=== PATIENT | male | born 1970 | race African-American/Black ===

== ENCOUNTER 2018-01-21 14:01 | Emergency (ER) | payer OTHER ==
[~2018-01-21 14:01] MED LIST: PENI500T PO; TRAM50 PO; Z.0.NO CURRENT MEDS
[2018-01-21 14:09] VITALS: BP 121/71; PULSE 63; RESP 16; TEMP 98.5; O2SAT 98
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
[2018-01-21] MEDS ORDERED: CYCL10TA PO (15:45)
[2018-01-21] MEDS ORDERED: NAPR500 PO (15:45)
== END 2018-01-21 16:16 | disposition home or self-care (01) ==
LOC: NEPK 14:01
DX: S39.012A Strain of muscle, fascia and tendon of lower back, initial encounter (principal); V43.52XA Car driver injured in collision with other type car in traffic accident, initial encounter; Y92.410 Unspecified street and highway as the place of occurrence of the external cause; F12.90 Cannabis use, unspecified, uncomplicated
CPT/HCPCS: 72100; 99283

== ENCOUNTER 2018-01-26 09:41 | Emergency (ER) | payer OTHER ==
[~2018-01-26] VITALS: Ht 172.7 cm; Wt 80.0 kg
[~2018-01-26 09:41] MED LIST changes: +CYCL10TA PO; +NAPR500 PO; -PENI500T PO; -TRAM50 PO; -Z.0.NO CURRENT MEDS
[2018-01-26 09:55] VITALS: BP 114/61; PULSE 70; RESP 16; TEMP 98.6; O2SAT 97
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
[2018-01-26 12:02] LABS: BASOPHIL % 0.3 % (0.0-2.0); EOSINOPHIL # 0.3 TH/MM3 (0-0.4); EOSINOPHIL % 4.4 % (0.0-4.0); HEMATOCRIT 42.6 % (39.0-51.0); HEMOGLOBIN 14.7 GM/DL (13.0-17.0); LYMPH % 38.9 % (9.0-44.0); MEAN CELL VOLUME 97.7 FL (80.0-100.0); MEAN CORPUSCULAR HEMOGLOBIN 33.8 PG (27.0-34.0); MEAN CORPUSCULAR HGB CONC 34.6 % (32.0-36.0); MEAN PLATELET VOLUME 7.2 FL (7.0-11.0); MONO % 4.6 % (0.0-8.0); MONOCYTE # 0.4 TH/MM3 (0-0.9); NEUT % 51.8 % (16.0-70.0); PLATELET COUNT 313 TH/MM3 (150-450); RED BLOOD COUNT 4.36 MIL/MM3 (4.50-5.90); RED CELL DISTRIBUTION WIDTH 13.2 % (11.6-17.2); WHITE BLOOD COUNT 7.7 TH/MM3 (4.0-11.0)
[2018-01-26 12:16] LABS: ALBUMIN 3.8 GM/DL (3.4-5.0); AST (GOT) 21 U/L (15-37); BICARBONATE 27.5 MEQ/L (21.0-32.0); BLOOD UREA NITROGEN 8 MG/DL (7-18); CALCIUM 9.3 MG/DL (8.5-10.1); CHLORIDE 108 MEQ/L (98-107); GLOMERULAR FILTRATION RATE 87 ML/MIN (>89); GLUCOSE,RANDOM 85 MG/DL (74-106); SODIUM (NA) 142 MEQ/L (136-145)
[2018-01-26 12:19] LABS: ALKALINE PHOSPHATASE 93 U/L (45-117); ALT (GPT) 30 U/L (12-78); TOTAL BILIRUBIN ADULT 0.3 MG/DL (0.2-1.0); TOTAL PROTEIN 7.4 GM/DL (6.4-8.2)
== END 2018-01-26 14:23 | disposition home or self-care (01) ==
LOC: NEPD 09:41
DX: K62.5 Hemorrhage of anus and rectum (principal)
CPT/HCPCS: 80053; 85025; 85610; 85730; 86850; 86900; 86901; 99283